=== PATIENT | male | born 1960 | race Caucasian/White ===

== ENCOUNTER 2019-01-13 19:40 | Emergency (ER) | payer BC ==
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
[2019-01-13 20:39] VITALS: BP 138/79; PULSE 80; O2SAT 97
--- NOTE | 2019-01-14 09:34 | XRAY ---
Exam: CT of the head without IV contrast from 01/13/2019. CTDI: 48.07 Comparison: None. Technique: Non-IV contrast axial images were obtained through the brain. Reconstructed coronal and sagittal images were created and reviewed. Findings: The ventricles appear of normal size and configuration. No focal mass effect or midline shift is seen. I see no acute intracranial bleed or abnormal extra-axial fluid collection. There is evidence of a small peripheral left cerebellar infarct with some concomitant atrophy of the adjacent sulci. An acute or subacute territorial infarct is not seen. The calvarium of the skull appears intact. There is some mild mucosal thickening within the superior aspect of the right maxillary sinus. There also appears to be some minimal mucosal thickening within the lower lateral portion of the right ethmoid sinus. Slight deviation of the nasal septum toward the right is seen on the first image. The mastoid air cells appear clear. Incidentally, minimal soft tissue calcifications are seen within each external ear. Correlate clinically. Impression: 1. I see no acute intracranial bleed or acute or subacute territorial infarct. 2. There is evidence of a small old peripheral left cerebellar infarct with some adjacent prominence of the cortical sulci. 3. Incidentally, small scattered soft tissue calcifications are seen within each external ear. Correlate clinically.
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
== END 2019-01-13 21:57 | disposition home or self-care (01) ==
LOC: ED 19:40
DX: M54.2 Cervicalgia (principal); R25.0 Abnormal head movements; V89.2XXA Person injured in unspecified motor-vehicle accident, traffic, initial encounter
CPT/HCPCS: 70450; 72100; 72125; 99284

== ENCOUNTER 2019-03-17 18:55 | Emergency (ER) | payer BC ==
[2019-03-17] MEDS ORDERED: PERCOCET TABLET 5/325MG PO STA (20:47)
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
[2019-03-17] MEDS ORDERED: PERCOCET TABLET 5/325MG ONE (21:13)
[2019-03-17 21:18] VITALS: BP 126/74; PULSE 82; O2SAT 96
--- NOTE | 2019-03-18 08:50 | XRAY ---
Indication: Pain following fall. Comparison: None 3 views of the left ankle obtained using portable technique demonstrates tiny anterior calcaneus bone island and tiny plantar spur. No other bony, articular, or soft tissue abnormalities.
== END 2019-03-17 21:25 | disposition home or self-care (01) ==
LOC: ED 18:55
DX: S93.402A Sprain of unspecified ligament of left ankle, initial encounter (principal); M25.572 Pain in left ankle and joints of left foot; X50.1XXA Overexertion from prolonged static or awkward postures, initial encounter; Y92.9 Unspecified place or not applicable; Z79.899 Other long term (current) drug therapy; E78.00 Pure hypercholesterolemia, unspecified; I10 Essential (primary) hypertension; I25.2 Old myocardial infarction; E03.9 Hypothyroidism, unspecified; Z86.73 Personal history of transient ischemic attack (TIA), and cerebral infarction without residual deficits
CPT/HCPCS: 73610; 99284; A9270-GY

== ENCOUNTER 2021-03-21 09:02 | Day surgery (SDC) | payer OTHER ==
[2021-03-21] MEDS ORDERED: BUPIVACAINE 0.5% VIAL IJ ONE (09:03)
[2021-03-21] MEDS ORDERED: Depo-Medrol 40 MG/ML IM ONE (09:03)
[2021-03-21] MEDS ORDERED: DIPRIVAN 200 MG/20 ML IV ONE (10:44)
--- NOTE | 2021-03-21 11:42 | XRAY ---
17 seconds fluoroscopy time in surgery for bilateral SI joint injections.
--- NOTE | 2021-03-21 11:43 | XRAY ---
Indication: Bilateral SI joint injection. Intraoperative fluoroscopy provided for 17 seconds. 4 digital spot image submitted for interpretation demonstrate posterior needle tip projecting over the inferior left and right SI joint. Correlate with intraoperative findings/report.
[2021-03-21] MEDS ORDERED: Lactated Ringers 1,000 ML IV ONE (16:02)
== END 2021-03-21 11:11 | disposition home or self-care (01) ==
LOC: SDC-PAIN 09:02
PROVIDERS: ATTEND Psychiatry & Neurology Pain Medicine
DX: M46.1 Sacroiliitis, not elsewhere classified (principal); J44.9 Chronic obstructive pulmonary disease, unspecified; I10 Essential (primary) hypertension; E78.5 Hyperlipidemia, unspecified; K21.9 Gastro-esophageal reflux disease without esophagitis; G47.30 Sleep apnea, unspecified; Z79.899 Other long term (current) drug therapy
CPT/HCPCS: 72202; 77002; J1030; J2704

== ENCOUNTER 2021-04-07 18:05 | Emergency (ER) | payer OTHER ==
[2021-04-07 18:42] LABS: Hematocrit 38.8 % (42-50); Hemoglobin 11.8 gm/dl (12.5-18.0); Mean Cell Volume 90.9 fl (78-100); Mean Corpuscular Hemoglobin 27.6 pg (26-32); Mean Corpuscular Hgb Concent. 30.4 g/dl (32-36); Mean Platelet Volume 10.7 fl (7.5-11.0); Platelet Count 342 K/mm3 (150-450); Red Blood Count 4.27 M/mm3 (4.1-5.6); Red Cell Distribution Width 17.7 % (11.5-14.0); White Blood Count 9.8 K/mm3 (4.0-10.5)
[2021-04-07 19:03] LABS: ALBUMIN 4.7 g/dL (3.5-5.0); ANION GAP 14.9 MEQ/L (5-15); BILIRUBIN,TOTAL 0.7 mg/dL (0.2-1.3); Creatinine 1 1.41 mg/dL (0.66-1.25); EST GLOMERULAR FILTRATION RATE 54.5 ML/MIN; Potassium 4.6 mmol/L (3.5-5.1); Total Protein 7.9 g/dL (6.3-8.2)
[2021-04-07 20:22] LABS: Basophil 1 % (0.0-1.0); Eosinophil 2 % (0.00-3.0); Lymphocytes 16 % (24-44); Monocyte 6 % (0.0-12.0); Neutrophils 75 % (36.-66.); Platelet Estimate NORMAL (NORMAL); Total Cells Counted 100
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
[2021-04-07] MEDS ORDERED: PERCOCET TABLET 5/325MG PO PRN (20:42)
[2021-04-07 20:44] VITALS: BP 99/59; PULSE 89; O2SAT 95
[2021-04-07] MEDS ORDERED: PERCOCET TABLET 5/325MG ONE (21:08)
[2021-04-07 21:21] LABS: Appearance CLOUDY (CLEAR); Bilirubin NEGATIVE (NEGATIVE); Blood NEGATIVE Ery/ul (0-5); Glucose NEGATIVE (NEGATIVE); Ketones NEGATIVE (NEGATIVE); Leukocyte Esterase LARGE (NEGATIVE); Mucus SLIGHT /HPF (NEGATIVE); Nitrite NEGATIVE (NEGATIVE); Protein,Urine Dip 30 (Negative); RBC 0-2 /HPF (0-2); Specific Gravity 1.018 (1.005-1.025); Urobilinogen 4 mg/dL (0-1); WBC >100 /HPF (0-5)
[2021-04-07 21:24] LABS: Bacteria MODERATE /HPF (NEGATIVE)
--- NOTE | 2021-04-08 07:33 | XRAY ---
Indication: Pain. No known injury. Comparison: None AP/lateral left knee demonstrates tiny patella spurring and posterior fabella. No other bony, articular, or soft tissue abnormalities.
--- NOTE | 2021-04-08 07:37 | XRAY ---
Indication: Low back pain. No known injury. Recent pain management injection. Multiple contiguous axial images obtained through the lumbar spine. Sagittal and coronal reformatted images obtained. Comparison: MRI lumbar spine October 20, 2020. Stable minimal L4-L6 degenerative broad-based disc bulge. No focal disc herniation, spinal canal, or foraminal stenosis. Facets are symmetric with minimal bilateral L5-L6 degenerative facet hypertrophy. Sagittal and coronal reformatted images demonstrate normal lumbar alignment with vertebral body height/disc spaces maintained. No acute compression fracture or subluxation. Visualized noncontrasted soft tissues demonstrates minimal iliac calcifications. Impression: 1. Stable L4-L6 degenerative disc disease. 2. Remaining CT lumbar spine is negative. Comment: Preliminary interpretation was made by [facility]. No critical discrepancy.
== END 2021-04-07 21:15 | disposition home or self-care (01) ==
LOC: ED 18:05
DX: M54.10 Radiculopathy, site unspecified (principal)
CPT/HCPCS: 36415; 72131; 73560; 80053; 81001; 83605; 85025; 85652; 86140; 87086; 99284; L1830; A9270-GY

== ENCOUNTER 2021-05-16 12:51 | Day surgery (SDC) | payer OTHER ==
[2021-05-16] MEDS ORDERED: Sodium Chloride 0.9(Preservative Free) 10 ML IJ ONE (12:52)
[2021-05-16] MEDS ORDERED: Depo-Medrol 40 MG/ML IM ONE (12:52)
[2021-05-16] MEDS ORDERED: DIPRIVAN 200 MG/20 ML IV ONE (14:22)
--- NOTE | 2021-05-16 15:11 | XRAY ---
Indication: Left L4-S1 transforaminal RAH. Intraoperative fluoroscopy provided for 25 seconds. Single digital spot image submitted for interpretation demonstrates posterior needle tips projecting over the expected left L4 and L5 nerve roots. Small amount of contrast injected for needle tip placement. Correlate with intraoperative findings/report.
[2021-05-16] MEDS ORDERED: Lactated Ringers 1,000 ML IV ONE (15:34)
--- NOTE | 2021-05-16 16:50 | XRAY ---
25 seconds fluoroscopy time in surgery for left L4-S1 transforaminal RAH.
== END 2021-05-16 14:45 | disposition home or self-care (01) ==
LOC: SDC-PAIN 12:51
PROVIDERS: ATTEND Psychiatry & Neurology Pain Medicine
DX: M54.16 Radiculopathy, lumbar region (principal); J44.9 Chronic obstructive pulmonary disease, unspecified; I10 Essential (primary) hypertension; E78.5 Hyperlipidemia, unspecified; K21.9 Gastro-esophageal reflux disease without esophagitis; Z79.01 Long term (current) use of anticoagulants; Z79.899 Other long term (current) drug therapy
CPT/HCPCS: 64483; 64484; 72100; 77003; J1030; J2704; Q9966

== ENCOUNTER 2022-04-23 13:48 | Emergency (ER) | payer MEDICAID ==
--- NOTE | 2022-04-23 14:25 | ERPHSYRPT ---
- History of Present Illness Time Seen by Provider: 04/23/22 14:10 Historian: patient Exam Limitations: no limitations Patient Subjective Stated Complaint: Abdominal pain Triage Nursing Assessment: Patient ambulated back to ED using cane and transf erred to bed per self. Patient A+O X3. Patient's skin pink, warm and dry. Patient complains of abdominal pain on and off for years. Patient complains of blood in stool and urine for one month. Abdomen soft and round with BS X 4. Physician History: Patient is a 61-year-old male presents to emergency department for evaluation of intermittent abdominal pain and blood in stool and urine. Patient has been experiencing intermittent abdominal pain for years. Patient is here because he has noticed blood in his stool and urine. This observation has been ongoing for approximately 1 month. No active abdominal pain at this time. No trauma. No fever. No nausea vomiting or diaphoresis. Symptoms are mild in intensity. No specific worsening improving factors. Patient voices no other complaints or concerns at this time. Patient currently on Eliquis for history of stroke. Timing/Duration: week(s) (4 weeks) Activities at Onset: none Quality: cramping (Intermittent abdominal cramping) Abdominal Pain Onset Location: generalized abdomen Pain Radiation: no radiation Severity of Pain-Max: moderate Severity of Pain-Current: mild Modifying Factors: Improves With: nothing Associated Symptoms: denies symptoms Previous symptoms: no prior history Allergies/Adverse Reactions: No Known Drug Allergies Allergy (Verified 04/23/22 13:57) Home Medications: Albuterol Sulfate [Proair Hfa] 2 inh PO Q4H PRN 03/17/19 [History] Aspirin 81 mg PO DAILY 03/17/19 [History] Atorvastatin Calcium 20 mg PO DAILY 03/17/19 [History] Omeprazole 20 mg PO DAILY 03/17/19 [History] Apixaban [Eliquis] 5 mg PO BID 04/07/21 [History] Ciclesonide [Alvesco] 1 inh PO DAILY 04/07/21 [History] Cyclobenzaprine HCl 10 mg [Cyclobenzaprine 10 MG] 10 mg PO TID PRN 04/07/21 [History] Isosorbide Mononitrate [Isosorbide Mononitrate ER] 30 mg PO DAILY 04/07/21 [History] Lisinopril 10 mg [Zestril 10 MG] 10 mg PO DAILY 04/07/21 [History] Loratadine 10 mg [Claritin 10 mg] 10 mg PO DAILY 04/07/21 [History] Metoprolol Tartrate 25 mg [Lopressor 25MG Tab] 25 mg PO BID 04/07/21 [History] Hx Tetanus, Diphtheria Vaccination/Date Given: No Hx Influenza Vaccination/Date Given: Yes Hx Pneumococcal Vaccination/Date Given: No Immunizations Up to Date: Yes Travel Risk - International Travel Have you traveled outside of the country in past 3 weeks: No - Coronavirus Screening Are you exhibiting any of the following symptoms?: No Close contact with a COVID-19 positive Pt in past 14-21 Days: No - Vaccine Status Have you recieved a Covid-19 vaccination: Yes Certified Nurse Operating Room: Moderna - Vaccination Dates Date of 2cond Vaccination (if applicable): N/A - Review of Systems Constitutional: No Symptoms, No Fever, No Chills Eyes: No Symptoms Ears, Nose, & Throat: No Symptoms Respiratory: No Symptoms, No Cough, No Dyspnea Cardiac: No Symptoms, No Chest Pain, No Edema, No Syncope Abdominal/Gastrointestinal: No Symptoms, No Abdominal Pain, No Nausea, No Vomiting, No Diarrhea Genitourinary Symptoms: No Symptoms, No Dysuria Musculoskeletal: No Symptoms, No Back Pain, No Neck Pain Skin: No Symptoms, No Rash Neurological: No Symptoms, No Dizziness, No Focal Weakness, No Sensory Changes Psychological: No Symptoms Endocrine: No Symptoms Hematologic/Lymphatic: No Symptoms Immunological/Allergic: No Symptoms All Other Systems: Reviewed and Negative - Past Medical History Pertinent Past Medical History: Yes Neurological History: Migraines, Stroke ENT History: No Pertinent History Cardiac History: No Pertinent History Respiratory History: Asthma Endocrine Medical History: No Pertinent History Musculoskeletal History: Osteoarthritis GI Medical History: No Pertinent History History: No Pertinent History Psycho-Social History: No Pertinent History Male Reproductive Disorders: No Pertinent History Other Medical History: twisted R ankle 2 months ago-wore a boot for a while. - Past Surgical History Past Surgical History: Yes Musculoskeletal: Orthopedic Surgery Other Surgical History: bilat carpal tunnel, rt ankle griffith rgery, shoulder surgery - Social History Smoking Status: Current every day smoker How long have you smoked: 32 y rs Exposure to second hand smoke: Yes Drug Use: none Patient Lives Alone: No - Nursing Vital Signs Nursing Vital Signs: Initial Vital Signs Temperature 97.7 F 04/23/22 13:57 Pulse Rate 94 H 04/23/22 13:57 Respiratory Rate 18 04/23/22 13:57 Blood Pressure 156/82 04/23/22 13:57 O2 Sat by Pulse Oximetry 99 04/23/22 13:57 Pain Scale Pain Intensity 0 - Physical Exam General Appearance: no apparent distress, alert Eye Exam: PERRL/EOMI, eyes nml inspection Ears, Nose, Throat Exam: normal ENT inspection, pharynx normal, moist mucous membranes Neck Exam: normal inspection, non-tender, supple, full range of motion Respiratory Exam: normal breath sounds, lungs clear, airway intact, No respiratory distress Cardiovascular Exam: regular rate/rhythm, normal heart sounds, normal peripheral pulses Gastrointestinal/Abdomen Exam: soft, normal bowel sounds, No tenderness, No mass, No guarding Back Exam: normal inspection, normal range of motion, No CVA tenderness, No vertebral tenderness Extremity Exam: normal inspection, normal range of motion, pelvis stable Neurologic Exam: alert, oriented x 3, cooperative, normal mood/affect, nml cerebellar function, sensation nml, No motor deficits Skin Exam: normal color, warm, dry SpO2 Interpretation: normal SpO2: 99 O2 Delivery: Room Air - Course Nursing assessment & vital signs reviewed: Yes EKG Interpreted by Me: RATE (76), Sinus Rhythm, NORMAL AXIS, NORMAL INTERVALS - CT Exams Abdomen/Pelvis CT Interpretation: Tele-radiologist Report (Right renal cyst left inguinal hernia. ) Ordered Tests: Active Orders 24 hr Category Date Time Status EKG-ER Only STAT Care 04/23/22 14:26 Active IV Insertion STAT Care 04/23/22 14:26 Active ABDOMEN AND PELVIS W/0 CONTRAS [CT] Stat Exams 04/23/22 14:44 Completed CBC W DIFF Stat Lab 04/23/22 14:53 Completed CMP Stat Lab 04/23/22 14:53 Completed CULTURE,URINE Stat Lab 04/23/22 14:48 Received LIPASE Stat Lab 04/23/22 14:53 Completed TROPONIN Q3H Lab 04/23/22 14:53 Completed TROPONIN Q3H Lab 04/23/22 17:30 Ordered TROPONIN Q3H Lab 04/23/22 20:30 Ordered TROPONIN Q3H Lab 04/23/22 23:30 Ordered TROPONIN Q3H Lab 04/24/22 02:30 Ordered UA W/RFX CULTURE Stat Lab 04/23/22 14:48 Completed Medication Summary Generic Name Dose Route Start Last Admin Trade Name Jacob PRN Reason Stop Dose Admin Sodium Chloride 1,000 mls @ 100 mls/hr 04/23/22 14:30 04/23/22 14:41 Sodium Chloride 0.9% 1000 Ml IV 05/23/22 14:29 100 mls/hr .Q10H MICHAEL Administration Discontinued Medications Generic Name Dose Route Start Last Admin Trade Name Jacob PRN Reason Stop Dose Admin Ceftriaxone Sodium/Dextrose 1 g in 50 mls @ 100 mls/hr 04/23/22 16:40 06/06/07 17:52 Rocephin 1 Gm-D5w 50 Ml Bag IV 04/23/22 17:09 Infused STAT STA Infusion Ceftriaxone Sodium/Dextrose Confirm 04/23/22 17:00 Rocephin 1 Gm-D5w 50 Ml Bag Administered 04/23/22 17:01 Dose 1 g in 50 mls @ ud IV .STK-MED ONE Potassium Chloride 40 meq 04/23/22 16:42 04/23/22 17:00 Potassium Chloride Tab 10 Meq Tab PO 04/23/22 16:43 40 meq STAT ONE Administration Potassium Chloride Confirm 04/23/22 17:00 Potassium Chloride Tab 10 Meq Tab Administered 04/23/22 17:01 Dose 40 meq PO .STK-MED ONE Lab/Rad Data: Laboratory Result Diagrams 04/23/22 14:53 04/23/22 14:53 Laboratory Results 04/23/22 04/23/22 04/23/22 Range/Units 14:53 14:53 14:53 WBC 8.5 (4.0-10.5) x10^3/uL RBC 4.09 L (4.1-5.6) x10^6/uL Hgb 11.6 L (12.5-18.0) g/dL Hct 36.4 L (42-50) % MCV 89.0 (78-100) fL MCH 28.4 (26-32) pg MCHC 31.9 L (32-36) g/dL RDW 19.1 H (11.5-14.0) % Plt Count 358 (150-450) x10^3/uL MPV 10.9 (7.5-11.0) fL Gran % 74.4 H (36.0-66.0) % Immature Gran % (Auto) 0.2 (0.00-0.4) % Nucleat RBC Rel Count 0.0 (0.00-0.1) % Eos # (Auto) 0.26 (0-0.5) x10^3/uL Immature Gran # (Auto) 0.02 (0.00-0.03) x10^3u/L Absolute Lymphs (auto) 0.86 L (1.0-4.6) x10^3/uL Absolute Monos (auto) 1.00 (0.0-1.3) x10^3/uL Absolute Nucleated RBC 0.00 (0.00-0.01) x10^3u/L Lymphocytes % 10.1 L (24.0-44.0) % Monocytes % 11.7 (0.0-12.0) % Eosinophils % 3.0 (0.00-5.0) % Basophils % 0.6 (0.0-0.4) % Absolute Granulocytes 6.34 (1.4-6.9) x10^3/uL Basophils # 0.05 (0-0.4) x10^3/uL Sodium 140 (137-145) mmol/L Potassium 3.4 L (3.5-5.1) mmol/L Chloride 102 (98-107) mmol/L Carbon Dioxide 26 (22-30) mmol/L Anion Gap 15.4 H (5-15) MEQ/L BUN 14 (9-20) mg/dL Creatinine 0.70 (0.66-1.25) mg/dL Estimated GFR > 60.0 ML/MIN Glucose 111 H (74-106) mg/dL Calcium 9.1 (8.4-10.2) mg/dL Total Bilirubin 0.70 (0.2-1.3) mg/dL AST 37 (17-59) U/L ALT 39 (0-50) U/L Alkaline Phosphatase 85 (38-126) U/L Troponin I < 0.012 (0.000-0.034) ng/mL Serum Total Protein 7.0 (6.3-8.2) g/dL Albumin 3.6 (3.5-5.0) g/dL Lipase 70 (23-300) U/L Urinalys Dipstick Clnc Urine Color (YELLOW) Urine Appearance (CLEAR) Urine pH (5-6) Ur Specific [place] (1.005-1.025) POC Urine Protein Conf (Negative) Urine Ketones (NEGATIVE) Urine Nitrite (NEGATIVE) Urine Bilirubin (NEGATIVE) Urine Urobilinogen (0-1) mg/dL Urine Leukocytes (NEGATIVE) Urine WBC (Auto) (0-5) /HPF Urine RBC (Auto) (0-2) /HPF U Epithel Cells (Auto) (FEW) /HPF Urine Bacteria (Auto) (NEGATIVE) /HPF Urine RBC (0-5) Kash/ul Urine Mucus (Auto) (NEGATIVE) /HPF Ur Culture Indicated? Urine Glucose (NEGATIVE) mg/dL 04/23/22 Range/Units 14:48 WBC (4.0-10.5) x10^3/uL RBC (4.1-5.6) x10^6/uL Hgb (12.5-18.0) g/dL Hct (42-50) % MCV (78-100) fL MCH (26-32) pg MCHC (32-36) g/dL RDW (11.5-14.0) % Plt Count (150-450) x10^3/uL MPV (7.5-11.0) fL Gran % (36.0-66.0) % Immature Gran % (Auto) (0.00-0.4) % Nucleat RBC Rel Count (0.00-0.1) % Eos # (Auto) (0-0.5) x10^3/uL Immature Gran # (Auto) (0.00-0.03) x10^3u/L Absolute Lymphs (auto) (1.0-4.6) x10^3/uL Absolute Monos (auto) (0.0-1.3) x10^3/uL Absolute Nucleated RBC (0.00-0.01) x10^3u/L Lymphocytes % (24.0-44.0) % Monocytes % (0.0-12.0) % Eosinophils % (0.00-5.0) % Basophils % (0.0-0.4) % Absolute Granulocytes (1.4-6.9) x10^3/uL Basophils # (0-0.4) x10^3/uL Sodium (137-145) mmol/L Potassium (3.5-5.1) mmol/L Chloride (98-107) mmol/L Carbon Dioxide (22-30) mmol/L Anion Gap (5-15) MEQ/L BUN (9-20) mg/dL Creatinine (0.66-1.25) mg/dL Estimated GFR ML/MIN Glucose (74-106) mg/dL Calcium (8.4-10.2) mg/dL Total Bilirubin (0.2-1.3) mg/dL AST (17-59) U/L ALT (0-50) U/L Alkaline Phosphatase (38-126) U/L Troponin I (0.000-0.034) ng/mL Serum Total Protein (6.3-8.2) g/dL Albumin (3.5-5.0) g/dL Lipase (23-300) U/L Urinalys Dipstick Clnc MAIN LAB Urine Color DARK YELLOW (YELLOW) Urine Appearance SLIGHTLY CLOUDY (CLEAR) Urine pH 6.0 (5-6) Ur Specific [place] 1.020 (1.005-1.025) POC Urine Protein Conf 30 (Negative) Urine Ketones TRACE (NEGATIVE) Urine Nitrite POSITIVE (NEGATIVE) Urine Bilirubin NEGATIVE (NEGATIVE) Urine Urobilinogen 1 (0-1) mg/dL Urine Leukocytes SMALL (NEGATIVE) Urine WBC (Auto) 51-100 (0-5) /HPF Urine RBC (Auto) 6-10 (0-2) /HPF U Epithel Cells (Auto) NONE (FEW) /HPF Urine Bacteria (Auto) MANY (NEGATIVE) /HPF Urine RBC MODERATE (0-5) Kash/ul Urine Mucus (Auto) SLIGHT (NEGATIVE) /HPF Ur Culture Indicated? YES Urine Glucose NEGATIVE (NEGATIVE) mg/dL - Progress Progress: improved Progress Note: Patient reassessed. He feels well. Patient denies pain. Work-up reveals urinary tract infection. Patient received a dose of Rocephin in our ED. Patient states that he was previously on Macrobid. We will treat with ciprofloxacin. Patient agrees to follow-up with primary care doctor within 48 hours for evaluation. Patient has no pain or tenderness in the inguinal region. Portions of this note were created with voice recognition technology. There may be grammatical, spelling, punctuation or sound alike errors 04/23/22 18:20 Counseled pt/family regarding: lab results, diagnosis, need for follow-up, rad results - Departure Departure Disposition: Home Clinical Impression: UTI (urinary tract infection), Hypokalemia, Calcified granuloma of lung, Renal cyst, Arthritis of spine, Left inguinal hernia Condition: Stable Critical Care Time: No Referrals: GENA PEREZ MD [Primary Care Provider] - Follow up/PCP as directed Prescriptions: Ciprofloxacin [Cipro 500 MG] 500 mg PO BID #14 tablet
[2022-04-23] MEDS ORDERED: Sodium Chloride 0.9% 1000 ML 1,000 ML IV SCH (14:30)
[2022-04-23] MEDS ORDERED: Sodium Chloride 0.9% 1000 ML 1,000 ML ONE (14:35)
--- NOTE | 2022-04-23 14:55 | XRAY ---
Indication: Right flank pain. Hematuria. Multiple contiguous axial images obtained through the abdomen and pelvis without contrast. Comparison: None Lung bases demonstrates mild bilateral dependent atelectasis and tiny right base calcified granuloma. Heart not enlarged. Noncontrasted stomach and bowel loops appear nonobstructed with normal appendix. No free fluid/air. 1.4 cm right mid renal cortical cyst. Remaining liver, gallbladder, pancreas, spleen, adrenal glands, kidneys, ureters, bladder, and aorta are unremarkable for noncontrast exam. Osseous structures intact with minimal degenerative changes throughout the thoracolumbar spine. Small fluid-filled left inguinal hernia. Impression: 1. Right renal cyst and small fluid-filled left inguinal hernia. 2. Remaining CT abdomen/pelvis without contrast exam is negative.
[2022-04-23 15:06] LABS: Absolute Neutrophil Ct (ANC) 6.34 x10^3/uL (1.4-6.9); Basophil (Absolute #) 0.05 x10^3/uL (0-0.4); Eosinophil (Absolute #) 0.26 x10^3/uL (0-0.5); Hematocrit 36.4 % (42-50); Hemoglobin 11.6 g/dL (12.5-18.0); Lymphocyte (Absolute #) 0.86 x10^3/uL (1.0-4.6); Lymphocytes % 10.1 % (24.0-44.0); Mean Corpuscular Hemoglobin 28.4 pg (26-32); Mean Corpuscular Hgb Concent. 31.9 g/dL (32-36); Mean Platelet Volume 10.9 fL (7.5-11.0); Monocytes % 11.7 % (0.0-12.0); Neutrophil % 74.4 % (36.0-66.0); Platelet Count 358 x10^3/uL (150-450); Red Blood Count 4.09 x10^6/uL (4.1-5.6); Red Cell Distribution Width 19.1 % (11.5-14.0); White Blood Count 8.5 x10^3/uL (4.0-10.5)
[2022-04-23 15:27] LABS: ALBUMIN 3.6 g/dL (3.5-5.0); ALKALINE PHOSPHATASE 85 U/L (38-126); ANION GAP 15.4 MEQ/L (5-15); BLOOD UREA NITROGEN 14 mg/dL (9-20); CHLORIDE 102 mmol/L (98-107); Calcium 9.1 mg/dL (8.4-10.2); Carbon Dioxide 26 mmol/L (22-30); EST GLOMERULAR FILTRATION RATE > 60.0 ML/MIN; Glucose 111 mg/dL (74-106); LIPASE 70 U/L (23-300); Potassium 3.4 mmol/L (3.5-5.1); SGOT/AST 37 U/L (17-59); SGPT/ALT 39 U/L (0-50); SODIUM 140 mmol/L (137-145)
[2022-04-23 16:11] VITALS: O2SAT 99
[2022-04-23 16:15] LABS: Bacteria MANY /HPF (NEGATIVE); Mucus SLIGHT /HPF (NEGATIVE); WBC 51-100 /HPF (0-5)
[2022-04-23 16:26] LABS: Appearance SLIGHTLY CLOUDY (CLEAR); Bilirubin NEGATIVE (NEGATIVE); Dipstick done @ ? MAIN LAB; Glucose NEGATIVE (NEGATIVE); Ketones TRACE (NEGATIVE); Nitrite POSITIVE (NEGATIVE); Protein,Urine Dip 30 (Negative); RBC MODERATE Ery/ul (0-5); Urobilinogen 1 mg/dL (0-1)
[2022-04-23 16:27] LABS: Urine Cultured Indicated? YES
[2022-04-23] MEDS ORDERED: ROCEPHIN 1 Gm-D5w 50 ml Bag** 1 G/50 ML IVPB IV STA (16:40)
[2022-04-23] MEDS ORDERED: Klor Con PO ONE ×2 (16:42→17:00)
[2022-04-23] MEDS ORDERED: ROCEPHIN 1 Gm-D5w 50 ml Bag** 1 G/50 ML IVPB IV ONE (17:00)
[2022-04-23 18:24] VITALS: BP 78/59; PULSE 87
== END 2022-04-23 18:34 | disposition home or self-care (01) ==
LOC: ED 13:48
DX: N39.0 Urinary tract infection, site not specified (principal); E87.6 Hypokalemia; J84.10 Pulmonary fibrosis, unspecified; Q61.01 Congenital single renal cyst; K40.90 Unilateral inguinal hernia, without obstruction or gangrene, not specified as recurrent; M47.815 Spondylosis without myelopathy or radiculopathy, thoracolumbar region; K92.1 Melena; R31.9 Hematuria, unspecified; R10.84 Generalized abdominal pain; Z72.0 Tobacco use; Z79.01 Long term (current) use of anticoagulants; Z79.899 Other long term (current) drug therapy
CPT/HCPCS: 36000; 36415; 74176; 80053; 81015; 83690; 84484; 85025; 87086; 93005; 96365; 99284; J0696; A9270-GY

== ENCOUNTER 2022-04-26 14:41 | Emergency (ER) | payer MEDICAID, OTHER ==
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
[2022-04-26] MEDS ORDERED: Ativan 2 MG/1 ML VIAL IV ONE (15:05)
[2022-04-26] MEDS ORDERED: solu-MEDROL 125 MG, Sterile H2O 10 ml 2 ML IV ONE ×2 (15:05)
[2022-04-26] MEDS ORDERED: Sterile H2O 10 ml IJ ONE (15:09)
[2022-04-26] MEDS ORDERED: solu-MEDROL ONE (15:10)
[2022-04-26] MEDS ORDERED: Ativan 2 MG/1 ML VIAL ONE (15:10)
[2022-04-26 15:37] LABS: Absolute Neutrophil Ct (ANC) 6.59 x10^3/uL (1.4-6.9); Basophil (Absolute #) 0.05 x10^3/uL (0-0.4); Eosinophil % 3.6 % (0.00-5.0); Eosinophil (Absolute #) 0.35 x10^3/uL (0-0.5); Hematocrit 33.5 % (42-50); Hemoglobin 10.7 g/dL (12.5-18.0); Lymphocyte (Absolute #) 1.81 x10^3/uL (1.0-4.6); Lymphocytes % 18.7 % (24.0-44.0); Mean Cell Volume 89.1 fL (78-100); Mean Corpuscular Hemoglobin 28.5 pg (26-32); Mean Corpuscular Hgb Concent. 31.9 g/dL (32-36); Mean Platelet Volume 10.8 fL (7.5-11.0); Monocyte (Absolute #) 0.85 x10^3/uL (0.0-1.3); Monocytes % 8.8 % (0.0-12.0); Neutrophil % 68.2 % (36.0-66.0); Platelet Count 408 x10^3/uL (150-450); Red Blood Count 3.76 x10^6/uL (4.1-5.6); White Blood Count 9.7 x10^3/uL (4.0-10.5)
[2022-04-26 15:59] LABS: ALBUMIN 3.8 g/dL (3.5-5.0); ALKALINE PHOSPHATASE 95 U/L (38-126); ANION GAP 16.7 MEQ/L (5-15); BLOOD UREA NITROGEN 13 mg/dL (9-20); CHLORIDE 108 mmol/L (98-107); Calcium 8.9 mg/dL (8.4-10.2); Carbon Dioxide 20 mmol/L (22-30); Creatinine 1 0.84 mg/dL (0.66-1.25); EST GLOMERULAR FILTRATION RATE > 60.0 ML/MIN; Glucose 93 mg/dL (74-106); NT PRO BNP 355 pg/mL (0-900); SGOT/AST 41 U/L (17-59); SGPT/ALT 35 U/L (0-50); SODIUM 142 mmol/L (137-145); Total Protein 7.3 g/dL (6.3-8.2)
[2022-04-26 16:17] LABS: Potassium 2.6 mmol/L (3.5-5.1)
[2022-04-26] MEDS ORDERED: Klor Con PO ONE ×2 (16:18→16:32)
[2022-04-26] MEDS ORDERED: POTASSIUM CHLORIDE 20 mEq IN WATER 100ML 20 MEQ/100 ML BAG IV ONE (16:18)
[2022-04-26] MEDS ORDERED: POTASSIUM CHLORIDE 20 mEq IN WATER 100ML 100 ML IV ONE (16:32)
[2022-04-26] MEDS ORDERED: Sodium Chloride 0.9% 1000 ML 1,000 ML ONE (16:32)
[2022-04-26] MEDS ORDERED: Sodium Chloride 0.9% 1000 ML 1,000 ML IV SCH (16:45)
[2022-04-26 18:09] VITALS: BP 118/67; PULSE 101; O2SAT 94
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
== END 2022-04-26 18:32 | disposition home or self-care (01) ==
LOC: ED 14:41
DX: T76.11XA Adult physical abuse, suspected, initial encounter (principal); T76.21XA Adult sexual abuse, suspected, initial encounter; E87.6 Hypokalemia; R06.02 Shortness of breath; Z79.01 Long term (current) use of anticoagulants; Z79.899 Other long term (current) drug therapy; Z72.0 Tobacco use
CPT/HCPCS: 36000; 36415; 71045; 80053; 83880; 84484; 85025; 85379; 93005; 93041; 94760; 96374; 96375; 99285; J2060; J2930; J3480; A9270-GY

== ENCOUNTER 2022-11-06 11:32 | Day surgery (SDC) | payer OTHER ==
[2022-11-06] MEDS ORDERED: Depo-Medrol 40 MG/ML IM ONE (11:33)
[2022-11-06] MEDS ORDERED: Sodium Chloride 0.9(Preservative Free) 10 ML IJ ONE (11:33)
[2022-11-06] MEDS ORDERED: DIPRIVAN 200 MG/20 ML IV ONE (12:40)
[2022-11-06] MEDS ORDERED: Lactated Ringers 1,000 ML IV ONE (12:53)
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
== END 2022-11-06 13:07 | disposition home or self-care (01) ==
LOC: SDC-PAIN 11:32
PROVIDERS: ATTEND Psychiatry & Neurology Pain Medicine
DX: M54.16 Radiculopathy, lumbar region (principal); Z79.899 Other long term (current) drug therapy
CPT/HCPCS: 64483; 64484; 72100; 77003; J1030; J2704; Q9966

== ENCOUNTER 2023-12-11 08:32 | Day surgery (SDC) | payer OTHER ==
[2023-12-11] MEDS ORDERED: Lactated Ringers 1,000 ML IV SCH (09:00)
[2023-12-11 09:33] VITALS: RESP 18; TEMP 98.4; O2SAT 99
[2023-12-11] MEDS ORDERED: DIPRIVAN 200 MG/20 ML IV ONE (11:16)
[2023-12-11] MEDS ORDERED: Versed 2 MG/2 ML Injection ONE (11:17)
[2023-12-11 12:36] VITALS: BP 111/61; PULSE 53
--- NOTE | 2023-12-11 13:03 | OP ---
SURGERY DATE/TIME: 12/11/2023 1126 PREOPERATIVE DIAGNOSIS: Due for colorectal cancer screening, average risk. POSTOPERATIVE DIAGNOSES: 1) Poor preparation. 2) Otherwise normal. PROCEDURE: Colonoscopy. SURGEON: Carlos Bautista M.D. ANESTHESIA: IV anesthesia. CONDITION: Stable. COMPLICATIONS: None. SPECIMEN: None. HISTORY: The patient is a 63-year-old male that actually is having gross hematuria but there was blood in the toilet and he was referred for colonoscopy. He is due for screening colonoscopy anyway as it has been ten years since last colonoscopy. Discussed with the patient and he would like to proceed with that. He is also undergoing work up for the dwight hematuria and has CT scan pending. FINDINGS: Poor preparation with about 50 to 75% visualization, otherwise normal. DESCRIPTION OF PROCEDURE: The patient was brought to endoscopy suite. Routinely positioned. Time out performed. IV anesthesia induced by anesthesia. Digital rectal examination is normal. The colonoscope is then inserted and advanced to the cecum confirmed by the appendiceal orifice and ileocecal valve. The Aronchick preparation scale is poor with 50 to 75% visualization of the mucosa. There are no obvious lesions identified. Retroflexion normal. Withdrawal time greater than six minutes. The patient tolerated the procedure well. RECOMMENDATIONS: Recommendation would be two year colonoscopy with extended preparation for poor preparation. He needs his gross hematuria worked up. The CT scan and UA are pending.
== END 2023-12-11 12:45 | disposition home or self-care (01) ==
LOC: SDC 08:32
PROVIDERS: ATTEND Surgery
DX: Z12.11 Encounter for screening for malignant neoplasm of colon (principal); I10 Essential (primary) hypertension
CPT/HCPCS: 93005; J2250; J2704